=== PATIENT | male | born 1985 | race Caucasian/White ===

== ENCOUNTER 2019-04-08 16:58 | Emergency (ER) | payer BC ==
[~2019-04-08] VITALS: Ht 188 cm; Wt 109.3 kg
[2019-04-08] MEDS ORDERED: ONDANSETRON HCL/PF 4 MG/2 ML VIAL ONE (17:14)
[2019-04-08] MEDS ORDERED: HYDROMORPHONE 1 MG/1 ML DISP.SYRIN ONE (17:15)
[2019-04-08] MEDS ORDERED: BUPR-51 PO (17:17)
[2019-04-08] MEDS ORDERED: AMPH20TA3 PO (17:17)
[2019-04-08] MEDS ORDERED: ESCI10TA PO (17:17)
[2019-04-08] MEDS ORDERED: ALPR0.5T PO (17:17)
[2019-04-08] MEDS ORDERED: TEST200V3 IM (17:17)
[2019-04-08] MEDS ORDERED: FENTANYL PF 100MCG/2ML AMPUL ONE (17:19)
[2019-04-08] MEDS ORDERED: VILA10TA PO (17:20)
[2019-04-08] MEDS ORDERED: MIDAZOLAM HCL 5 MG/5ML VIAL ONE (17:20)
--- NOTE | 2019-04-08 17:22 | NUR ---
PATIENT CAME IN TO THE ER C/O THEO PAIN, S/P EXERCISE INJURY. +LUE DEFORMITY NOTED. ON ROOM AIR, BREATHING EVENLY AND UNLABORED. CONNECTED TO THE MONITOR AND PULSE OX. KEPT COMFORTABLE, WILL CONTINUE TO MONITOR ACCORDINGLY.
--- NOTE | 2019-04-08 17:23 | NUR ---
madhavi at bedside for x-ray.
[2019-04-08] MEDS ORDERED: ONDANSETRON HCL/PF 4 MG/2 ML VIAL IVP ONE (17:30)
[2019-04-08] MEDS ORDERED: MIDAZOLAM HCL 2 MG/2ML VIAL IV ONE (17:30)
[2019-04-08] MEDS ORDERED: HYDROMORPHONE INJ 2 MG/ML DISP.SYRIN IV ONE (17:30)
[2019-04-08] MEDS ORDERED: IV NS 0.9% 1,000 ML BAG IV ONE (17:30)
[2019-04-08] MEDS ORDERED: FENTANYL PF 100MCG/2ML AMPUL IV ONE (17:30)
[2019-04-08] MEDS ORDERED: PROPOFOL 20 ML IV ONE (17:35)
[2019-04-08] MEDS ORDERED: PROPOFOL 200 MG/20 ML VIAL IV ONE (18:00)
[2019-04-08 18:55] VITALS: BP 161/83
--- NOTE | 2019-04-08 18:55 | NUR ---
Patient discharged to home in stable condition. Written and verbal after care instructions given. Patient verbalizes understanding of instruction.IV removed. Catheter intact and site benign. Pressure and 4x4 applied to site. No bleeding noted.
== END 2019-04-08 18:55 | disposition home or self-care (01) ==
LOC: ER 17:03
DX: S43.085A Other dislocation of left shoulder joint, initial encounter (principal); Z85.850 Personal history of malignant neoplasm of thyroid; Z79.899 Other long term (current) drug therapy; W01.0XXA Fall on same level from slipping, tripping and stumbling without subsequent striking against object, initial encounter; Y93.89 Activity, other specified; Y92.89 Other specified places as the place of occurrence of the external cause; Y99.8 Other external cause status
CPT/HCPCS: 23650; 73020 ×2; 96374; 96375; 99152; 99285; J1170; J2250; J2405; J2704; J3010; J7030; G0500